=== PATIENT | female | born 1955 | race Caucasian/White ===

== ENCOUNTER 2017-02-24 09:50 | Outpatient (CLI) | payer MEDICARE ==
--- NOTE | 2017-02-24 13:54 | ULT ---
ULTRASOUND LEFT BREAST: HISTORY: Ultrasound of the left breast is performed to assess a mass density seen on mammography and also pal pated by the patient. FINDINGS: Ultrasound confirms a hypoechoic irregularly shaped mass at 2 o'clock 12 cm from nipple correspondin g to the mammogram mass and the palpable abnormality. This mass measures 2.4 x 2.2 x 2.4 cm on ultr asound. This mass is suspicious for neoplasm. Ultrasound-guided biopsy is recommended and will be scheduled. IMPRESSION: BI-RADS category 4, suspicious abnormality. Biopsy is recommended. POS: [facility]
--- NOTE | 2017-02-24 14:02 | MMO ---
BILATERAL DIAGNOSTIC MAMMOGRAMS: HISTORY: Diagnostic mammogram is performed to assess a palpable mass in the outer left breast noted by the neal titus approximately 2 months ago. This is a baseline exam. FINDINGS: There is a heterogeneously dense glandular pattern. There is an irregularly shaped multilobulated mass in the outer left breast which measures approxima tely 3 cm on mammography corresponding to the palpable abnormality. Ultrasound was performed and an irregularly shaped hypoechoic mass was identified on ultrasound. Findings were suspicious for neoplasm. Biopsy is recommended. IMPRESSION: BI-RADS 4, suspicious mass lesion outer left breast. Biopsy is recommended and ultrasound-guided co re biopsy will be scheduled by this department. POS: [facility]
--- NOTE | 2017-02-24 15:40 | MMO ---
LEFT MAMMOGRAMS: INDICATION: Followup left breast biopsy procedure. FINDINGS: Localization clip is seen within the mass of the outer left breast confirming biopsy site. IMPRESSION: BI-RADS 4, suspicious abnormality. Biopsy report pending. POS: [facility]
--- NOTE | 2017-02-24 21:04 | ULT ---
PROCEDURE: 1. ULTRASOUND GUIDED BIOPSY MASS LEFT BREAST. 2. ULTRASOUND GUIDED PLACEMENT OF LOCALIZATION CLIP AT BIOPSY SITE. 3. POST BIOPSY MAMMOGRAM LEFT BREAST FINDINGS: 1. Four 14 gauge core specimens were obtained through the large mass under ultrasound guidance. The specimens were placed in formalin. Pre fire and post fire images confirmed biopsies in the mid portion of the mass with each specimen. 2. Localization clip was placed within the mass under ultrasound guidance. 3. Postprocedure mammogram confirms localization clip within the mass lesion. PROCEDURE NOTE: The left breast was prepped and draped in the sterile manner. Local anesthesia was administered with lidocaine and bicarb under ultrasound guidance. Tiny skin incision was made with the scalpel. 14 ga uge bard biopsy instrument was used. This instrument was then introduced under ultrasound guidance. The tip of the needle was advanced at the margin of the mass a prefire image obtained. Post fire rachelle ge confirmed biopsy through the mid portion of the mass. This was repeated x4 with four excellent co re specimens obtained for pathology. Ultrasound guided clip placement was then performed. Patient tolerated the procedure well and was sent to mammogram for postprocedure mammogram in good c ondition. Nurse navigator will followup with biopsy report and navigate patient's next appointment. POS: [facility]
== END 2017-02-24 09:51 | disposition home or self-care (01) ==
LOC: MAMMO 09:50
PROVIDERS: ATTEND Family Medicine
DX: N63.20 Unspecified lump in the left breast, unspecified quadrant (principal)
CPT/HCPCS: 19083; 76642; 88305; 88341; 88342; G0204; G0206; 77066

== ENCOUNTER 2017-03-05 11:51 | Outpatient (CLI) | payer MEDICARE | END 2017-03-05 11:52 | disposition home or self-care (01) | LOC: LABBT 11:51 | PROVIDERS: ATTEND Specialist | DX: Z01.818 Encounter for other preprocedural examination (principal); N63.0 Unspecified lump in unspecified breast ==

== ENCOUNTER 2018-04-04 09:16 | Outpatient (CLI) | payer MEDICARE | END 2018-04-04 09:17 | disposition home or self-care (01) | LOC: BICMAMMO 09:16 | PROVIDERS: ATTEND Specialist | DX: Z08 Encounter for follow-up examination after completed treatment for malignant neoplasm (principal); Z85.3 Personal history of malignant neoplasm of breast | CPT/HCPCS: 77066; G0279 ==

== ENCOUNTER 2020-04-10 10:02 | Outpatient (CLI) | payer MEDICARE ==
--- NOTE | 2020-04-10 11:10 | MMO ---
Bilateral MAMMO Bilat Diag [facility]. CLINICAL HISTORY: Patient is 64 years old and is seen for diagnostic exam. The patient has no family history of breast cancer. The patient has a history of malignant (generic) in the left breast in 2017. The patient has a history of left Lumpectomy in 2017 - malignant. VIEWS: The views performed were: bilateral craniocaudal; bilateral craniocaudal with tomosynthesis; bilateral mediolateral oblique; bilateral mediolateral oblique with tomosynthesis; bilateral mediolateral; and bilateral mediolateral with tomosynthesis. FILMS COMPARED: The present examination has been compared to prior imaging studies performed at [facility] on 04/05/2019, at [facility] on 04/04/2018, and at [facility] on 02/24/2017. This study has been interpreted with the assistance of computer-aided detection. MAMMOGRAM FINDINGS: There are scattered fibroglandular densities. Benign calcifications are noted bilaterally. There are stable left post-operative changes. There are no suspicious masses, suspicious calcifications, or new areas of architectural distortion. IMPRESSION: THERE IS NO MAMMOGRAPHIC EVIDENCE OF MALIGNANCY. A ROUTINE FOLLOW-UP MAMMOGRAM IN 1 YEAR IS RECOMMENDED. THE RESULTS OF THIS EXAM WERE SENT TO THE PATIENT. ACR BI-RADS Category 2 - Benign finding MAMMOGRAPHY NOTE: 1. A negative mammogram report should not delay a biopsy if a dominant of clinically suspicious mass is present. 2. Approximately 10% to 15% of breast cancers are not detected by mammography. 3. Adenosis and dense breasts may obscure an underlying neoplasm. Reported by: RATNA PINTO MD Electonically Signed: [id number]
== END 2020-04-10 10:03 | disposition home or self-care (01) ==
LOC: BICMAMMO 10:02
PROVIDERS: ATTEND Specialist
DX: Z08 Encounter for follow-up examination after completed treatment for malignant neoplasm (principal); Z85.3 Personal history of malignant neoplasm of breast
CPT/HCPCS: 77066; G0279